=== PATIENT | male | born 1985 | race Caucasian/White ===

== ENCOUNTER 2021-03-25 10:49 | Emergency (ER) | payer MEDICAID ==
[~2021-03-25] VITALS: Ht 190.5 cm; Wt 67.7 kg
[2021-03-25] MEDS ORDERED: METHOCARBAMOL 500 MG TABLET PO ONE (12:00)
[2021-03-25] MEDS ORDERED: KETOROLAC TROMETHAMINE 60 MG/2 ML VIAL IM ONE (12:00)
[2021-03-25 12:20] VITALS: BP 140/80
== END 2021-03-25 12:20 | disposition home or self-care (01) ==
LOC: EMS 10:49
DX: S16.1XXA Strain of muscle, fascia and tendon at neck level, initial encounter (principal); X50.3XXA Overexertion from repetitive movements, initial encounter; Y93.11 Activity, swimming; Y92.89 Other specified places as the place of occurrence of the external cause; Y99.8 Other external cause status
CPT/HCPCS: 96372; 99283; J1885